=== PATIENT | female | born 1985 | race Native Hawaiian/Other Pacific Islander ===

== ENCOUNTER 2018-07-18 08:44 | Emergency (ER) | payer OTHER ==
[2018-07-18] MEDS ORDERED: METOCLOPRAMIDE 10 MG/2 ML VIAL IVP ONE (09:22)
[2018-07-18] MEDS ORDERED: NS 1,000 ML IV ONE (09:22)
[2018-07-18] MEDS ORDERED: KETOROLAC 30 MG/1 ML SDV IVP ONE (09:22)
--- NOTE | 2018-07-18 09:25 | EDPHY ---
HPI/HX/ROS/PE/MDM Narrative: CHIEF COMPLAINT: "I'm having a really bad migraine for the last 2.5 weeks," vomiting HPI: The patient is a 32 y/o female with a history of occasional migraines arriving with her family complaining of a recurrent migraine headache for the last 2.5 weeks. She describes pain behind her right eye and along her right lateral neck that is worse when turning her head. Symptoms today feel the same as prior headaches except this episode has lasted much longer than typical. She gets what she describes as migraines once or twice per year that usually resolve quickly with OTC treatments like Advil Migraine and Tylenol. She has been using these medications daily for this episode with temporary alleviation. She came into the ED today due to ongoing symptoms and new onset vomiting. She denies weakness, paresthesias, vision changes, speech difficulty, confusion, fever, recent illness, or recent fever. She has no formal diagnosis of migraines and is not prescribed any medication for them nor has she ever come to the ED for treatment, but says migraines run in her family. No prior neuroimaging. REVIEW OF SYSTEMS: A comprehensive 10 system review of systems is otherwise negative aside from elements mentioned in the history of present illness. PMH: Migraines (self-diagnosed). SOCIAL HISTORY: and child at bedside. Lives in [place]. Employed. PHYSICAL EXAM: General:Patient is alert, in no acute distress. ENT:Eyes are normal to inspection. ENT inspection normal. No photophobia. PERRL. Neck: Normal inspection. Full range of motion. No bruits noted. Respiratory:No respiratory distress. Breath sounds normal bilaterally. Cardiovascular: Regular rate and rhythm. Strong peripheral pulses. Normal cap refill. Abdomen:The abdomen is nontender to palpation. There are no peritoneal signs. Back: Normal to inspection. No tenderness to palpation. Skin: Normal color. No rash. Warm and dry. Extremities: Normal appearance. Full range of motion. Neuro: Oriented x3. Normal motor function. Normal sensory function. Cranial nerves intact. Normal speech. Normal gait. ED Course: This is a 32 y/o female with a history of occasional migraines who presents with a 2.5-week history of headache behind her right eye. Symptoms are consistent with past headaches, but the length of symptoms has increased beyond prior experiences worrying the patient. She has a nonfocal neuro exam. IV established and migraine cocktail ordered including 1L IV NS, 30mg IV Toradol, 10mg IV Reglan, and 25mg IV Benadryl. Patient is concerned about intracranial pathology and would like a head CT as she has had no prior neuroimaging for these symptoms. Head CT: negative. 1100: Reassessed patient and discussed findings. Her headache has completely resolved and she feels ready for discharge home. She declines further imaging. Standard care and follow up instructions given. Return precautions discussed. Addendum (07/19/18 1074) Called patient to check in on her as part of standard follow-up. No answer. MDM: This is a young healthy female with long history of self-diagnosed migraine headaches, presenting with typical-type headache for two weeks. Her pain is unilateral and retrorbital which is typical for her. After extensive discussion , we agreed to proceed with CTH in addition to migraine cocktail. On re- evaluation at 11:00, patient is now completely asymptomatic and her detailed neurologic exam remains normal. Given unilateral nature of pain and some neck pain, I considered carotid and/or vertebral dissection, but patient has no neurologic deficits, no trauma or connective tissue disorder, no reports of ataxia etc. We discussed further imaging today in the ED including CTA/MRI to exclude potentially serious disease and this was offered to her, but patient opts to go with outpatient neurology follow-up for further evaluation rather than additional emergent imaging today. We discussed strict return precautions. - Data Points Imaging Results: Imaging Impressions Head CT 07/18/18 09:22 Impression: 1. No significant intracranial abnormality seen. If symptoms worsen, additional imaging may be necessary. Findings discussed with Tony Dee MD at 10:25 hour, 07/18/2018. Imaging: Discussed imaging studies w/ call center receptionist Radiologist, I viewed and interpreted images myself Laboratory Results: Laboratory Results 07/18/18 09:00 07/18/18 09:00 07/18/18 07/18/18 07/18/18 09:00 09:00 09:00 WBC 6.39 10^3/uL 10^3/uL (3.80-9.50) RBC 4.57 10^6/uL 10^6/uL (4.18-5.33) Hgb 13.9 g/dL g/dL (12.6-16.3) Hct 41.7 % % (38.0-47.0) MCV 91.2 fL fL (81.5-99.8) MCH 30.4 pg pg (27.9-34.1) MCHC 33.3 g/dL g/dL (32.4-36.7) RDW 12.7 % % (11.5-15.2) Plt Count 283 10^3/uL 10^3/uL (150-400) MPV 9.0 fL fL (8.7-11.7) Neut % (Auto) 77.6 % H % (39.3-74.2) Lymph % (Auto) 15.6 % % (15.0-45.0) [place] % (Auto) 5.2 % % (4.5-13.0) Eos % (Auto) 0.6 % % (0.6-7.6) Baso % (Auto) 0.8 % % (0.3-1.7) Nucleat RBC Rel Count 0.0 % % (0.0-0.2) Absolute Neuts (auto) 4.96 10^3/uL 10^3/uL (1.70-6.50) Absolute Lymphs (auto) 1.00 10^3/uL 10^3/uL (1.00-3.00) Absolute Monos (auto) 0.33 10^3/uL 10^3/uL (0.30-0.80) Absolute Eos (auto) 0.04 10^3/uL 10^3/uL (0.03-0.40) Absolute Basos (auto) 0.05 10^3/uL 10^3/uL (0.02-0.10) Absolute Nucleated RBC 0.00 10^3/uL 10^3/uL (0-0.01) Immature Gran % 0.2 % % (0.0-1.1) Immature Gran # 0.01 10^3/uL 10^3/uL (0.00-0.10) Sodium 139 mEq/L mEq/L (135-145) Potassium 4.2 mEq/L mEq/L (3.5-5.2) Chloride 107 mEq/L mEq/L (97-110) Carbon Dioxide 23 mEq/l mEq/l (22-31) Anion Gap 9 mEq/L mEq/L (6-14) BUN 19 mg/dL mg/dL (7-23) Creatinine 0.6 mg/dL mg/dL (0.6-1.0) Estimated GFR > 60 Glucose 104 mg/dL H mg/dL (70-100) Calcium 9.0 mg/dL mg/dL (8.5-10.4) Beta HCG, Qual NEGATIVE Medications Given: Discontinued Medications Diphenhydramine HCl (Benadryl Injection) 25 mg IVP EDNOW ONE Stop: 07/18/18 09:23 Last Admin: 07/18/18 09:35 Dose: 25 mg Sodium Chloride (Ns) 1,000 mls @ 0 mls/hr IV ONCE ONE; Wide Open PRN Reason: Protocol Stop: 07/18/18 09:23 Last Admin: 07/18/18 09:32 Dose: 1,000 mls Ketorolac Tromethamine (Toradol) 30 mg IVP EDNOW ONE Stop: 07/18/18 09:23 Last Admin: 07/18/18 09:34 Dose: 30 mg Metoclopramide HCl (Reglan Injection) 10 mg IVP EDNOW ONE Stop: 07/18/18 09:23 Last Admin: 07/18/18 09:38 Dose: 10 mg General Time Seen by Provider: 07/18/18 09:14 Initial Vital Signs: Initial Vital Signs Temperature (C) 36.5 C 07/18/18 08:48 Heart Rate 58 L 07/18/18 08:48 Respiratory Rate 18 07/18/18 08:48 Blood Pressure 109/65 07/18/18 08:48 O2 Sat (%) 97 07/18/18 08:48 O2 Delivery Mode Room Air Allergies/Adverse Reactions: No Known Allergies Allergy (Unverified 07/18/18 08:50) Home Medications: Medication Instructions Recorded NK [No Known Home Meds] 07/18/18 Departure - Departure Disposition: Home, Routine, Self-Care Clinical Impression: Headache Condition: Good Instructions: Acute Headache (ED) Additional Instructions: 1. Use [id number] migraine medications such as Excedrin as directed on the packaging as needed for headaches. 2. Increase fluid intake. 3. Follow up with headache specialist in the next week. 4. Return to the ED for worsening of condition. Referrals: Siri Fofana [Primary Care Provider] - As per Instructions Daniel Garcia DO [Medical Doctor] - As per Instructions Report Scribed for: Tony Dee Report Scribed by: Lizbeth Kunz Date of Report: 07/18/18 Time of Report: 09:25 Physician Review and Approval Statement: Portions of this note were transcribed by an ED scribe. I personally performed the history, physical exam, and medical decision making; and confirm the accuracy of the information in the transcribed note.
[2018-07-18 09:46] LABS: PLATELET COUNT 283 10^3/uL (150-400)
[2018-07-18 10:58] VITALS: BP 104/58
== END 2018-07-18 11:24 | disposition home or self-care (01) ==
DX: R51 Headache (principal); E86.9 Volume depletion, unspecified
CPT/HCPCS: 96374; J1200; J1885; J2765